=== PATIENT | female | born 1980 | race Caucasian/White ===

== ENCOUNTER 2017-01-20 17:16 | Inpatient (IN) | payer BC ==
[~2017-01-20] VITALS: Ht 160 cm; Wt 78.0 kg
[2017-02-19 12:20] VITALS: BP 186/93
[2017-02-19] MEDS ORDERED: OXYTOCIN 30U/ 0.9% NaCL 500ML 500 ML IV ONE (12:43)
[2017-02-19] MEDS ORDERED: ONDANSETRON 2MG/ML, 2ML IVPush PRN (13:00)
[2017-02-19] MEDS ORDERED: FENTANYL PF 100 MCG/2ML IV PRN (13:00)
[2017-02-19] MEDS ORDERED: FENTANYL PF 100 MCG/2ML IVPush PRN (13:00)
[2017-02-19 13:11] LABS: HEMOGLOBIN 12.8 g/dL (11.7-16.4); WHITE BLOOD COUNT 9.6 x10^3/uL (3.4-10)
[2017-02-19] MEDS ORDERED: LABETALOL 5MG/ML, 20ML ONE (13:15)
[2017-02-19 13:18] LABS: BLOOD UREA NITROGEN 13 mg/dL (7-18)
[2017-02-19 13:22] LABS: ASPARTATE AMINO TRANSFERASE 41 U/L (15-37)
[2017-02-19] MEDS: LACTATED RINGERS 1,000 ML IV SCH ×3 (13:30→23:12)
[2017-02-19] MEDS ORDERED: LABETALOL 5MG/ML, 20ML IVPush ONE ×3 (13:30→16:00)
[2017-02-19] MEDS ORDERED: NEWBORN KIT ONE (14:17)
[2017-02-19] MEDS ORDERED: MAGNESIUM SULFATE PMX 4GM/100M 100 ML ONE (14:29)
[2017-02-19] MEDS ORDERED: MAGNESIUM SULF. PMX 20GM/500ML 500 ML IV ONE ×2 (14:29→23:27)
[2017-02-19] MEDS ORDERED: MAGNESIUM SULFATE PMX 4GM/100M 100 ML IVPB ONE (14:30)
[2017-02-19] MEDS: MAGNESIUM SULF. PMX 20GM/500ML 500 ML IV SCH ×2 (15:01→23:36)
[2017-02-19 19:42] VITALS: BP 158/83
[2017-02-19] MEDS ORDERED: ACETAMINOPHEN 325 MG TABLET PO PRN (20:00)
[2017-02-19] MEDS ORDERED: ACETAMINOPHEN 325 MG TABLET ONE (21:14)
[2017-02-19] MEDS ORDERED: CALCIUM CARBONATE 500 MG TAB.CHEW ONE (21:14)
[2017-02-19] MEDS: CALCIUM CARBONATE 500 MG TAB.CHEW PO PRN (21:17)
[2017-02-19] MEDS: D5%-LACTATED RINGERS 1,000 ML IV SCH ×2 (22:32→23:13)
[2017-02-19] MEDS ORDERED: LIDOCAINE 1%, 20ML ONE (23:03)
[2017-02-19] MEDS ORDERED: OXYTOCIN 30U/ 0.9% NaCL 500ML 500 ML ONE (23:04)
[2017-02-19] MEDS ORDERED: MISOPROSTOL 200 MCG TABLET ONE (23:04)
[2017-02-20] MEDS ORDERED: OXYTOCIN 30U/ 0.9% NaCL 500ML 500 ML IV PRN (00:14)
[2017-02-20] MEDS ORDERED: FENTANYL/BUPIV./NS/PF 250 ML EPIDCONT ONE (00:29)
[2017-02-20] MEDS ORDERED: BUPIVACAINE/PF 0.25% ONE (00:29)
[2017-02-20] MEDS ORDERED: BUPIVACAINE 0.25% ONE (00:35)
[2017-02-20] MEDS ORDERED: FENTANYL/BUPIV./NS/PF 250 ML EPIDCONT SCH (00:53)
[2017-02-20] MEDS ORDERED: LACTATED RINGERS 1,000 ML IV SCH (00:53)
[2017-02-20] MEDS ORDERED: LACTATED RINGERS 1,000 ML IVBOLUS PRN (01:00)
[2017-02-20] MEDS ORDERED: CALCIUM CARBONATE 500 MG TAB.CHEW ONE ×2 (01:13→08:47)
[2017-02-20] MEDS: CALCIUM CARBONATE 500 MG TAB.CHEW PO PRN ×3 (01:14→13:44)
[2017-02-20] MEDS: LACTATED RINGERS 1,000 ML IV SCH (02:15)
[2017-02-20] MEDS ORDERED: ONDANSETRON 2MG/ML, 2ML ONE (03:57)
[2017-02-20] MEDS: MAGNESIUM SULF. PMX 20GM/500ML 500 ML IV SCH ×2 (04:05→16:11)
[2017-02-20] MEDS ORDERED: EPHEDRINE 50 MG/ML, 1ML ONE (04:43)
[2017-02-20 04:45] VITALS: BP 86/54
[2017-02-20] MEDS ORDERED: EPHEDRINE 50 MG/ML, 1ML IVPush ONE ×2 (05:00→05:30)
[2017-02-20] MEDS ORDERED: LIDOCAINE/MPF 2%-EPI 1:200K, 20 ML ONE (10:56)
[2017-02-20] MEDS ORDERED: MAGNESIUM SULF. PMX 20GM/500ML 500 ML IV ONE (15:08)
[2017-02-20] MEDS: LABETALOL 5MG/ML, 20ML IVPush PRN ×2 (15:12→15:13)
[2017-02-20] MEDS ORDERED: OXYTOCIN 30U/ 0.9% NaCL 500ML 500 ML IV SCH (17:41)
[2017-02-20] MEDS ORDERED: OXYTOCIN 30U/ 0.9% NaCL 500ML 500 ML ONE (17:49)
[2017-02-20] MEDS ORDERED: IBUPROFEN 800 MG TABLET ONE (17:53)
[2017-02-20] MEDS ORDERED: CARBOPROST TROMETHAMINE 250 MCG/ML, 1ML IM PRN (18:00)
[2017-02-20] MEDS ORDERED: METOCLOPRAMIDE 5 MG/ML, 2ML IV PRN (18:00)
[2017-02-20] MEDS ORDERED: DOCUSATE 100 MG CAPSULE PO PRN (18:00)
[2017-02-20] MEDS ORDERED: BISACODYL 10 MG SUPP PR PRN (18:00)
[2017-02-20] MEDS ORDERED: IBUPROFEN 800 MG TABLET PO PRN (18:00)
[2017-02-20] MEDS ORDERED: OXYcodone/APAP 5/325MG TABLET PO PRN ×2 (18:00)
[2017-02-20] MEDS ORDERED: ONDANSETRON 2MG/ML, 2ML IV PRN (18:00)
[2017-02-20] MEDS ORDERED: GLYCERIN ADULT SUPP PR PRN (18:00)
[2017-02-21] MEDS ORDERED: PREN1TAB60 PO (07:08)
[2017-02-21] MEDS ORDERED: DOCU-131 PO (07:09)
[2017-02-21 08:28] LABS: HEMATOCRIT 25.3 % (34.6-47.8); HEMOGLOBIN 8.8 g/dL (11.7-16.4); WHITE BLOOD COUNT 15.9 x10^3/uL (3.4-10)
[2017-02-21 08:36] VITALS: BP 132/76
[2017-02-21] MEDS ORDERED: PRENATAL VIT/IRON/FA 1 EACH TABLET PO SCH (09:00)
[2017-02-21] MEDS ORDERED: PRENATAL VIT/IRON/FA 1 EACH TABLET ONE (09:18)
[2017-02-21] MEDS ORDERED: DOCUSATE 100 MG CAPSULE ONE (09:18)
[2017-02-21 20:20] VITALS: BP 129/84
[2017-02-21] MEDS ORDERED: SODIUM CHLORIDE FLUSH 3ML SYRINGE IVF SCH (21:00)
[2017-02-22 05:00] VITALS: BP 120/71
[2017-02-22 07:47] VITALS: BP 129/72
[2017-02-22] MEDS ORDERED: IBUP-1222 PO (08:59)
[2017-02-22] MEDS ORDERED: OXYC-302 PO (09:00)
== END 2017-02-22 13:54 | disposition home or self-care (01) | DRG 775 ==
LOC: LDOP 17:16 → EDSTATUS 17:38 → LDIP 02-19 11:58 → 2NE 02-20 19:43 → 2NW 02-21 19:06
PROVIDERS: ADMIT Student in an Organized Health Care Education/Training Program; ATTEND Student in an Organized Health Care Education/Training Program
PROC: 10E0XZZ Delivery of Products of Conception, External Approach (ICD-10-PCS; principal; 2017-02-20)
PROC: 0U7C7ZZ Dilation of Cervix, Via Natural or Artificial Opening (ICD-10-PCS; 2017-02-20)
PROC: 10907ZC Drainage of Amniotic Fluid, Therapeutic from Products of Conception, Via Natural or Artificial Opening (ICD-10-PCS; 2017-02-20)
PROC: 3E0R3BZ Introduction of Anesthetic Agent into Spinal Canal, Percutaneous Approach (ICD-10-PCS; 2017-02-20)
PROC: 00HU33Z Insertion of Infusion Device into Spinal Canal, Percutaneous Approach (ICD-10-PCS; 2017-02-20)
DX: O14.14 Severe pre-eclampsia complicating childbirth (principal); D62 Acute posthemorrhagic anemia; O77.0 Labor and delivery complicated by meconium in amniotic fluid; J45.909 Unspecified asthma, uncomplicated; O99.03 Anemia complicating the puerperium; O26.893 Other specified pregnancy related conditions, third trimester; O99.52 Diseases of the respiratory system complicating childbirth; Z37.0 Single live birth; Z3A.40 40 weeks gestation of pregnancy; Z80.3 Family history of malignant neoplasm of breast; Z82.49 Family history of ischemic heart disease and other diseases of the circulatory system; Z82.3 Family history of stroke; Z80.42 Family history of malignant neoplasm of prostate
CPT/HCPCS: 36415; 80053; 81003; 82248; 82570; 82803; 83735; 84156; 84550; 85025; 86850; 86900; J2405; J3010; J3490; J2590; J3475; J7120; J7121